=== PATIENT | male | born 1975 | race Caucasian/White ===

== ENCOUNTER → 2016-09-18 14:14 | Outpatient (CLI) | payer MEDICARE | END | disposition home or self-care (01) | LOC: D.US 14:14 | DX: N50.811 Right testicular pain (principal) ==

== ENCOUNTER 2017-11-03 08:14 | Day surgery (SDC) | payer MEDICARE, BC ==
[~2017-11-03] VITALS: Ht 177.8 cm; Wt 72.6 kg
--- NOTE | ~2017-11-03 | HP ---
PATIENT: GERBER CRAIN MEDICAL RECORD: [id number] ACCOUNT: [id number] LOCATION:[facility] : 79 ADMISSION DATE: 11/03/17 HISTORY AND PHYSICAL EXAMINATION HISTORY OF PRESENT ILLNESS: Gerber is a 42-year-old male with problems with nasal obstruction and septal deviation, turbinate hypertrophy, admitted for septoplasty and turbinate reduction. PAST MEDICAL HISTORY: Includes reflux. Chronic pain, managed by Dr. Mendoza. PAST SURGICAL HISTORY: Includes cholecystectomy in 2009. CURRENT MEDICATIONS: Lovastatin, Protonix, Wellbutrin, [place], tizanidine, Robaxin, sucralfate. ALLERGIES: MORPHINE. PHYSICAL EXAMINATION: GENERAL: Healthy appearing. FACE: Normal, symmetric, no lesions. EYES: Conjunctivae normal. EARS: Canals and TMs are normal. NOSE: He has severe septal deviation and large inferior turbinates, no masses or polyps. ORAL CAVITY AND OROPHARYNX: Tongue is midline. Pharynx normal. NECK: No masses, no adenopathy. CHEST: Clear. CARDIOVASCULAR: Regular rate and rhythm, no murmur. EXTREMITIES: Normal. IMPRESSION: Nasal obstruction, septal deviation, and turbinate hypertrophy. PLAN: Septoplasty and bilateral inferior turbinate reduction. TRANSINT:[id number] Voice Confirmation ID: [id number] DOCUMENT ID: [id number] LISY TURCIOS MD CC: [id number] DICTATION DATE: 10/31/17831 GENERAL MAINTENANCE HELPER: 10/31/17 0956 PRE [facility] [address] [place] [address]
--- NOTE | ~2017-11-03 | OP ---
PATIENT NAME: JOSE CRAIN MEDICAL RECORD: [id number] :79 [facility] DATE: SURGEON: LISY CHRIS MD DATE OF OPERATION: 11/03/2017 PREOPERATIVE DIAGNOSES: Nasal obstruction, septal deviation, and bilateral inferior turbinate hypertrophy. POSTOPERATIVE DIAGNOSES: Nasal obstruction, septal deviation, and bilateral inferior turbinate hypertrophy. PROCEDURES: Septoplasty and bilateral inferior turbinate reduction. SURGEON: Lisy Chris MD ANESTHESIA: General orotracheal. BLOOD LOSS: 2 cc. SPECIMENS: None. COMPLICATIONS: None. NASAL PACKING: Cole splints bilaterally. DISPOSITION: Recovery stable. DESCRIPTION OF PROCEDURE: He was brought to the operating room and placed in supine position, sedated and intubated by anesthesia. The eyes were taped. The table was turned 90 degrees. A head drape was applied and he was positioned for nasal surgery. Using a headlight and nasal speculum, both the inferior turbinates and floor of the nose and nasal septum were injected with a total of 2 cc of 1% lidocaine with 1:100,000 epinephrine. Two Afrin pledgets were placed in each side of the nose. He was positioned, prepped and draped in usual sterile fashion. All the Afrin pledgets were removed. A left Tico incision was made and ipsilateral mucoperichondrial flap was elevated. Bony cartilaginous junction was disarticulated and scissors were used to make a cut above and below sharp left nasal spur. Redundant cartilage was dissected off of the maxillary spine. Relaxing incisions were made in the septal cartilage to allow it to fall back into the midline. The caudal septum was dissected out the columella and this folded up septum into the left nostril was dissected out and trimmed off, so it could fall back to the midline between the medial crura and the lower lateral cartilages. Once that was done, the septum was straight. Inferior turbinates were medialized with a freer. A Gruenwald was used to take down the inferior redundant portion of the turbinates. Suction cautery on a setting of 30 was used to stop any bleeding and they were both outfractured with Boies elevator. Tico incision was closed with interrupted 4-0 chromic. Nose was examined, nasopharynx was suctioned on both sides. There was good straight nasal airway bilaterally. The Cole splints were placed with some mupirocin ointment and sutured to the anterior membranous septum with 2-0 Prolene on a Yann needle. He was awakened, extubated, and transported to recovery in good condition. No complications. TRANSINT:[id number] Voice Confirmation ID: [id number] DOCUMENT ID: [id number] OPERATIVE REPORT [id number] JOSE CRAIN ERIC MD CC: [id number] DICTATION DATE: 11/03/17 1342 PORTFOLIO CONSULTANT: 11/03/17 1430 REG [facility] [address] [place] [id number]
[~2017-11-03 08:14] MED LIST: BUPROPION HCL75 MG PO; HYDROCODONE-APA1 TAB PO; LOVASTATIN20 MG PO; PROTONIX40 MG PO; ROBAXIN-750750 MG PO; ZANAFLEX4 MG PO
[2017-11-03] MEDS ORDERED: CARAFATE1 G PO (09:34)
[2017-11-03] MEDS ORDERED: ADVIL200 MG PO (09:36)
[2017-11-03] MEDS ORDERED: FLUTICASONE PRO16 GM NASAL (09:37)
[2017-11-03 09:44] VITALS: BP 118/73; Ht 177.8 cm; Wt 72.6 kg
== END 2017-11-03 15:45 | disposition home or self-care (01) ==
LOC: D.OPS 08:14 → D.PAN 09:30 → D.OPS 10:00
DX: J34.2 Deviated nasal septum (principal); J34.3 Hypertrophy of nasal turbinates; K21.9 Gastro-esophageal reflux disease without esophagitis; J34.89 Other specified disorders of nose and nasal sinuses

== ENCOUNTER → 2018-01-19 10:13 | Outpatient (CLI) | payer MEDICARE, BC ==
[2017-11-03 09:44] VITALS: BMI 23.0
[~2018-01-19 10:13] MED LIST changes: +ADVIL200 MG PO; +CARAFATE1 G PO; +FLUTICASONE PRO16 GM NASAL
== END | disposition home or self-care (01) ==
LOC: D.MRI 10:13
DX: M54.16 Radiculopathy, lumbar region (principal); M54.6 Pain in thoracic spine

== ENCOUNTER → 2018-02-26 07:50 | Outpatient (CLI) | payer MEDICARE, BC ==
[2017-11-03 09:44] VITALS: BMI 23.0
== END | disposition home or self-care (01) ==
LOC: D.CT 07:50
DX: R10.31 Right lower quadrant pain (principal)

== ENCOUNTER 2018-03-13 12:30 | Outpatient (CLI) | payer MEDICARE, BC ==
[~2018-03-13] VITALS: Ht 177.8 cm; Wt 70.5 kg
--- NOTE | ~2018-03-13 | HEMODYNAMI ---
PATIENT:JOSE CRAIN MEDICAL RECORD: [id number] : 79 LOCATION:D.CAT ADMISSION DATE: 03/13/18 Generatedon:03/13/201817:12 Patient name: JOSE CRAIN Patient #: [id number] SSN: : 1975 Date of study: 03/13/2018 Page: Of Hemodynamic Procedure Report Patient Data Patient Demographics Procedure consent was obtained First Name: JOSE Gender: Male Last Name: PARAS : 1975 [facility] Initial: RIVERA Age: 42 year(s) Patient #: [id number] Race: Unknown Additional ID: [id number] Contact details Address: [place] [address] State: [place] City: [place] Zip code: [address] Past Medical History Allergies Allergen Reaction Date Comments Reported Morphine 03/13/2018 Admission Admission Data Admission Date: 03/13/2018 Admission Time: 12:30 Admit Source: Other Lab Results Lab Result Date: 03/13/2018 Lab Result Time: 0:00 Biochemistry Name Units Result Min Max BUN mg/dl 17 --(---*)-- 7 18 Creatinine mg/dl 1.1 --(--*-)-- 0.6 1.3 CBC Name Units Result Min Max Hemoglobin g/dl 15.3 --(-*--)-- 13.5 17.5 Procedure Procedure Types Cath Procedure Diagnostic Procedure C [facility] w/Coronaries Procedure Description Procedure Date Procedure Date: 03/13/2018 Procedure Start Time: 17:01 Procedure End Time: 17:11 Procedure Staff Name Function Matt Taylor MD Performing Physician Leonila Cantu RN Nurse Ford Salvador RT Scrub Lindsay Begum RT Monitor Procedure Data Cath Procedure Fluoroscopy Diagnostic fluoroscopy Total fluoroscopy Time: 1.6 time: 1.6 min min Diagnostic fluoroscopy Total fluoroscopy dose: 183 dose: 183 mGy mGy Contrast Material Contrast Material Type Amount (ml) Isovue 300 36 Entry Location Entry Primary Successful Side Size Upsize Upsize Entry Closure Almanzar ccessful Closure Location (Fr) 1 (Fr) 2 (Fr) Remarks Device Remarks Radial Right 6 Fr Mechanical artery Short Compression Estimated blood loss: 5 ml Diagnostic catheters Device Type Used For End Catheter Placement DIAGNOSTIC Valley 110cm 5 Procedure Fr catheter ([id number]) Procedure Complications No complications Procedure Medications Medication Administration Route Dosage Oxygen NC 2 l/min Lidocaine 2% added to field 20 Heparin Flush Bag added to field 2 bags (1000units/500ml NS) 0.9% NaCl I.V. 100 ml/hr Versed I.V. 2 mg Fentanyl I.V. 100 mcg Versed I.V. 2 mg Fentanyl I.V. 100 mcg Radial Cocktail I.A. 1 syringe (Verapomil 2mg/Nitro 400mcg/Heparin 1500units) Versed I.V. 1 mg Hemodynamics Rest HGB: 15.3 (g/dl) Heart Rate: 77 (bpm) Snapshots Pre Cath Intra NCS Post Cath Vital Signs Time Heart Resp SPO2 etCO2 NIBP (mmHg) Rhythm Pain Sedation Rate (ipm) (%) (mmHg) Status Level (bpm) 16:44:09 77 22 100 0 149/93(117) NSR 0 (11) 10(A) , No pain 16:48:25 76 17 100 32.8 134/86(104) NSR 0 (11) 10(A) , No pain 16:52:39 76 14 100 36.6 123/77(94) NSR 0 (11) 10(A) , No pain 16:56:46 81 15 100 35.8 130/84(98) NSR 0 (11) 10(A) , No pain 17:01:00 79 15 100 41.1 123/71(102) NSR 0 (11) 10(A) , No pain 17:05:13 79 16 100 38.1 117/69(93) NSR 0 (11) 9(A) , No pain 17:09:24 88 12 98 36.6 113/63(91) NSR 0 (11) 10(A) , No pain Medications Time Medication Route Dose Verified Delivered Reason Notes Effectiveness by by 16:48:57 Oxygen NC 2 l/min Matt Keen used for Claudia Cantu RN procedure 16:49:08 Lidocaine 2% added 20ml Matt Gutierrez for local to vial Claudia Taylor MD anesthetic field 16:50:27 Heparin Flush added 2 bags Matt Gutierrez used for Bag to Claudia Taylor MD procedure (1000units/500ml field NS) 16:50:36 0.9% NaCl I.V. 100 Matt Keen Per ml/hr Claudia Cantu RN physician 16:58:53 Versed I.V. 2 mg Matt Keen for sedation Claudia Cantu RN 16:59:02 Fentanyl I.V. 100 mcg Matt Keen for sedation Claudia Cantu RN 17:03:09 Versed I.V. 2 mg Matt Keen for sedation Claudia Cantu RN 17:03:12 Fentanyl I.V. 100 mcg Matt Keen for sedation Claudia Cantu RN 17:05:50 Radial Cocktail I.A. 1 Matt Gutierrez for (Verapomil syringe Claudia Taylor MD vasodilation 2mg/Nitro 400mcg/Heparin 1500units) 17:07:59 Versed I.V. 1 mg Matt Gutierrez for sedation Claudia Taylor MD Procedure Log Time Note 16:33:51 Informed consent obtained and on chart 16:33:56 Admit Source: Other 16:36:08 Ford Salvador RT(R) (CV) sent for patient. Start room use. 16:36:10 Time tracking: Regular hours (M-F 7:00 - 5:00) 16:36:13 Plan of Care:Hemodynamics will remain stable., Cardiac rhythm will remain stable., Comfort level will be maintained., Respiratory function will remain adequate., Patient/ family verbilizes understanding of procedure., Procedure tolerated without complication., Recovers from procedure without complications.. 16:36:48 Patient received from ED to CCL 2 Alert and oriented. Tansferred to table in Supine position. 16:36:49 Warm blankets applied, and harsh hugger turned on for patient comfort. 16:36:50 Correct patient and procedure confirmed by team. 16:36:50 ECG and BP/O2 sat monitors applied to patient. 16:43:02 Vital chart was started 16:48:57 Oxygen 2 l/min NC was administered by Leonila Cantu RN; used for procedure; 16:49:08 Lidocaine 2% 20ml vial added to field was administered by Matt Taylor MD; for local anesthetic; 16:50:11 Baseline sample Acquired. 16:50:15 Rhythm: sinus rhythm 16:50:16 Full Disclosure recording started 16:50:19 H&P Date Dictated: 03/13/2018 ER History on chart.. 16:50:20 Pre-procedure instructions explained to patient. 16:50:21 Pre-op teaching completed and patient verbalized understanding. 16:50:26 Family in waiting room. 16:50:27 Heparin Flush Bag (1000units/500ml NS) 2 bags added to field was administered by Matt Taylor MD; used for procedure; 16:50:30 Patient NPO since Breakfast. 16:50:36 0.9% NaCl 100 ml/hr I.V. was administered by Leonila Cantu RN; Per physician; 16:50:54 Patient allergic to Morphine 16:51:04 Is the patient allergic to Iodine/contrast media? No. 16:51:11 Is patient on blood thinner?No 16:51:13 Patient diabetic? No. 16:51:15 Previous problem with sedation/anesthesia? No ? 16:51:16 Snore? Yes 16:51:25 POSSIBLE SLEEP APNEA 16:51:28 Deviated septum? No 16:51:28 Opens mouth fully? Yes 16:51:29 Sticks out tongue? Yes 16:51:30 Airway obstruction? No ? 16:51:32 Dentures? No ? 16:51:35 Modified Abram's test Ulnar < 7 seconds 16:51:38 Patient pain scale 4/10 ?. 16:51:43 IV patent on arrival in right forearm with 0.9% NaCl at [facility]. 16:53:49 Use device set Radial Dx or PCI 16:54:23 Lab Result : BUN 17 mg/dl 16:54:23 Lab Result : Creatinine 1.1 mg/dl 16:54:23 Lab Result : Hemoglobin 15.3 g/dl 16:54:26 Lab results completed and on chart. 16:54:29 Right Radial & Right Groin area was prepped with chlora-prep and draped in sterile fashion 16:54:30 Alarms reviewed by R. N. 16:54:30 Sharps counted by scrub and verified by R.N. 16:54:39 ACIST Syringe (07588) opened to sterile field. 16:54:40 Bag Decanter (2002S) opened to sterile field. 16:54:41 ACIST Hand Control (48931) opened to sterile field. 16:54:41 ACIST Manifold (72057) opened to sterile field. 16:54:43 Tegaderm 4 x 4 (1626W) opened to sterile field. 16:54:45 Medline Cath Pack ([id number]) opened to sterile field. 16:54:45 DIAGNOSTIC WIRE .035 260cm J wire (019371) opened to sterile field. 16:54:46 MBrace Wrist Support ([id number]) opened to sterile field. 16:54:48 SHEATH 6Fr Prelude Radial ([id number]) opened to sterile field. 16:55:31 --------ALL STOP TIME OUT------ 16:55:31 Final Timeout: patient, procedure, and site verified with staff and physician. All members of the team are in agreement. 16:55:33 Right Radial & Right Groin site verified by team. 16:55:35 Physical assessment completed. ASA score P 2 - A patient with mild systemic disease as per Matt Taylor MD. 16:55:38 Sedation plan: IV Moderate Sedation Medication:Versed, Fentanyl 16:57:34 Zero performed for pressure channel P1 16:58:10 Zero performed for pressure channel P1 16:58:53 Versed 2 mg I.V. was administered by Leonila Cantu RN; for sedation; 16:59:02 Fentanyl 100 mcg I.V. was administered by Leonila Cantu RN; for sedation; 17:01:17 Procedure started. 17:01:30 Local anesthetic to right radial artery with Lidocaine 2% by Matt Taylor MD.INITIAL ACCESS ONLY 17:03:09 Versed 2 mg I.V. was administered by Leonila Cantu RN; for sedation; 17:03:12 Fentanyl 100 mcg I.V. was administered by Leonila Cantu RN; for sedation; 17:04:56 A 6 Fr Short sheath was inserted into the Right Radial artery 17:05:30 A DIAGNOSTIC Valley 110cm 5 Fr catheter (468936) was advanced over the wire and used for Procedure. 17:05:50 Radial Cocktail (Verapomil 2mg/Nitro 400mcg/Heparin 1500units) 1 syringe I.A. was administered by Matt Taylor MD; for vasodilation; 17:06:07 LV gram done using MADDEN 17:06:18 Injector settings: Ml/sec: 5, Volume: 10, 17:07:02 EF : 60 % 17:07:52 LCA angiography performed. 17:07:59 Versed 1 mg I.V. was administered by Matt Taylor MD; for sedation; 17:08:42 RCA angiography performed. 17:08:52 Catheter removed. 17:08:55 TR BAND Standard ([id number]) opened to sterile field. 17:09:01 Procedure ended.(Physican Out) 17:09:10 Sheath removed intact; hemostasis achieved with Mechanical Compression to the Right Radial artery. 17:09:36 Fluoroscopy time 01.60 minutes. 17:09:39 Fluoroscopy dose: 183 mGy 17:09:39 Flurop Dose total: 183 17:10:13 Contrast amount:Isovue 300 36ml. 17:10:15 Sharps counted by scrub and verified by R.N. 17:10:17 TR band inflated with 11cc of air. 17:10:20 Post-procedure physical assessment completed. ASA score P 2 - A patient with mild systemic disease as per Matt Taylor MD. 17:10:23 Post procedure rhythm: sinus rhythm 17:10:25 Estimated blood loss: 5 ml 17:10:35 Post procedure instruction explained to patient.Patient verbalizes understanding. 17:10:35 Patient needs reinforcement of post procedure teaching. 17:10:56 Procedure and supply charges have been captured, reviewed, submitted and are correct. 17:10:59 Procedure Complication : No complications 17:11:00 Vital chart was stopped 17:11:09 See physician's report for complete and final results. 17:11:10 Report given to Pre/Post Procedure Room. 17:11:12 Patient transfered to Pre/Post Procedure Room with Bed. 17:11:14 Procedure ended. 17:11:14 Full Disclosure recording stopped 17:11:18 End room use (Document Last) Device Usage Item Name Manufacture Quantity Catalog Number Hospital Part Current M inimal Lot# / Charge Number Stock Stock Serial# Code ACIST Syringe Acist 1 30172 500765 014997 103966 2 0 (39123) [employer] Bag Decanter Microtek 1 053612 86048 508911 5 () Medical Inc. ACIST Hand Acist 1 18371 743859 714597 030964 5 Control (60914) [employer] Inc ACIST Manifold Acist 1 25429 648286 027148 987456 5 (14228) [employer] Inc Tegaderm 4 x 4 3M 1 1626W 160395 610407 784085 5 (1626W) Medline Cath Cardinal 1 [id number] 131183 94391 717065 5 [facility] ([id number]) DIAGNOSTIC WIRE St Handy 1 648201 392672 705269 053545 3 0 .035 260cm J wire (248098) MBrace Wrist Advanced 1 140-0250-00 633205 54119 854977 5 Support Vascular ([id number]) Dynamics SHEATH 6Fr Merit 1 [id number] 702582 686558 443917 5 Prelude Radial Medical ([id number]) DIAGNOSTIC Terumo 1 29-2927 019243 905548 103615 5 Valley 110cm 5 Fr catheter (996811) TR BAND Terumo 1 [id number] 979017 740865 584903 4 0 Standard ([id number]) Signature Audit Johnston Stage Time Signature Unsigned Intra-Procedure 03/13/2018 Lindsay Begum 5:12:18 PM RT(R) Signatures Monitor : Lindsay Begum Signature : RT Date : Time : [place] [id number] [facility] [place] [address]
--- NOTE | ~2018-03-13 | CN ---
PATIENT NAME:JOSE CRAIN MEDICAL RECORD: [id number] : 79 LOCATION:D.CAT ADMIT DATE: ACCOUNT: [id number] CONSULTING PHYSICIAN: JENNA GARCIA MD REFERRING PHYSICIAN: YANNICK DAVIS MD DATE OF CONSULTATION: 03/13/2018 DIAGNOSES: 1. Chest pain. 2. Strong family history of coronary artery disease. HISTORY OF PRESENT ILLNESS: Mr. Crain presents with chest pain, this has been on and off for the past few days. He went to his primary care doctor's office, they treated him for GERD. He has continued to have this chest pain despite that. PHYSICAL EXAMINATION: GENERAL APPEARANCE: Well-nourished, well-developed, appears stated age. Level of distress, comfortable. PSYCHIATRIC: Mental status, alert, normal affect. Orientation, oriented to time, place and person. EYES: Lids and conjunctiva, noninjected. No discharge, no pallor. ENT: Lips, teeth, gums, normal dentition. Oropharynx, no cyanosis, no pallor. NECK: Carotid arteries, bilateral normal upstroke, no bruits, no thrills. JUGULAR VEINS: No jugular venous pressure or distention. CERVICAL LYMPH NODES: Nontender, nonenlarged. THYROID: Not enlarged. Nontender. No nodules. LUNGS: Respiratory effort, unlabored. CHEST: Normal curvature. No thoracic deformity. No chest wall tenderness. Percussion, resonant. Auscultation, clear. No wheezes, no rales, no rhonchi. CARDIOVASCULAR: Precordial exam, nondisplaced. No heaves or pericardial thrills. Rate and rhythm, regular. Heart sounds, normal S1, normal S2. No S3, no gallop, no rub. Systolic murmur, not heard. Diastolic murmur, not heard. EXTREMITIES: No cyanosis, no edema. Peripheral pulses, full and equal in all extremities, except as noted. No bruits appreciated. ABDOMEN: Soft, nondistended. Normal aorta. No bruit. Nontender. No masses. Liver, nontender, no hepatomegaly. Spleen, nontender, no splenomegaly. MUSCULOSKELETAL: No joint tenderness. No joint swelling. No erythema. NEUROLOGICAL: Normal gait, normal strength, normal tone. SKIN: Warm and dry. REVIEW OF SYSTEMS: The patient reports easy bruising but reports no swollen glands. The patient reports no fever, no night sweats, no significant weight gain, no significant weight loss. No significant exercise tolerance. The patient reports no dry eyes, no irritation, no vision change. Patient reports no difficulty hearing and no ear pain. Patient reports no frequent nose bleeds or nose and sinus problems. Patient reports on arm pain on exertion. No shortness of breath while lying down. No history of heart murmur. Patient reports no cough, no wheezing or coughing up blood. Patient reports no abdominal pain, no vomiting. Normal appetite. No diarrhea and not vomiting blood. No nausea and no constipation. Patient reports no incontinence. No difficulty urinating. No hematuria. No increased frequency. Patient reports no muscle aches. No weakness, no arthralgias, no back pain. No swelling of the extremities. Patient reports no abnormal mole, no jaundice, no rashes. Reports no loss of consciousness. No weakness and no numbness. No seizures, dizziness, CONSULT REPORT [id number] JOSE CRAIN or headaches. The patient reports no depression, no sleep disturbance, feeling safe in a relationship and no alcohol abuse. Patient reports on fatigue. Reports no runny nose or sinus pressure. No itching, no hives, and no frequent sneezing. OVERALL IMPRESSION: Continued chest pain, very strong family history of coronary artery disease. He is not having a myocardial infarction. We will proceed with coronary angiography. Further care depends upon the findings of the angiography. TRANSINT:[id number] Voice Confirmation ID: [id number] DOCUMENT ID: [id number] JENNA GARCIA MD at 2002 CC: [id number] DICTATION DATE: 03/13/18 1510 ROOM SERVICE BELLHOP: 03/13/18 1612 DEP CLI 03/13/18 [address] [id number] [place] [address]
--- NOTE | ~2018-03-13 | OP ---
PATIENT NAME: JOSE CRAIN MEDICAL RECORD: [id number] :79 LOCATION:D.CAT ADMISSION DATE: SURGEON: JENNA GARCIA MD DATE OF OPERATION: 03/13/2018 PROCEDURES: 1. Left heart catheterization. 2. Selective coronary angiography. 3. Left ventriculogram. INDICATION: Chest pain. PROCEDURE IN DETAIL: After informed consent was obtained and after a detailed description of the risks, benefits as well as alternative therapies, the patient elected to proceed with angiogram and heart catheterization. The right radial area was prepped and draped in normal sterile fashion. Right radial artery was cannulated via modified Seldinger technique with placement of 6-Burkinan sheath. All catheters exchanged through this sheath. FINDINGS: Left ventriculogram was performed in standard 30-degree MADDEN view, reveals good cardiac wall motion throughout all segments. Overall ejection fraction estimated 60%. SELECTIVE CORONARY ANGIOGRAPHY: Left main, left anterior descending, left circumflex, and right coronary artery are all smooth-walled vessels with no angiographic evidence of coronary artery disease. OVERALL IMPRESSION: 1. No angiographic evidence of coronary artery disease. 2. Normal left heart pressures. 3. Normal left ventricular systolic function. Chest pain is noncardiac in etiology. No further cardiac workup needs to be ascertained. TRANSINT:[id number] Voice Confirmation ID: [id number] DOCUMENT ID: [id number] JENNA GARCIA MD at 2001 CC: [id number] DICTATION DATE: 03/13/18 1715 VEGETABLE FARMING SUPERVISOR: 03/13/18 1759 DEP CLI 03/13/[address] [address]
[2018-03-13 12:41] VITALS: Ht 177.8 cm; Wt 70.5 kg
[2018-03-13 13:27] LABS: CKMB 0.9 U/L (0.0-3.6); CREATINE KINASE 144 UL (21-232)
[2018-03-13 13:47] LABS: TROPONIN-I < 0.017 ng/mL (0.000-0.060)
[2018-03-13 14:06] LABS: BASOPHILS 0.6 % (0-2); EOSINOPHILS 1.1 % (0-7); HEMATOCRIT 44.4 % (42.0-54.0); HEMOGLOBIN 15.3 g/dL (13.5-17.5); IMMATURE GRANULOCYTES 0.3 % (0-5); LYMPHOCYTES 29.2 % (15-50); MCH 30.1 pg (26.0-34.0); MCHC 34.5 g/dL (31.0-37.0); MCV 87.2 fL (80.0-100.0); MEAN PLATELET VOLUME 9.7 fL (7.4-10.4); NEUTROPHILS 60.8 % (40-80); PLATELET COUNT 232 10x3/uL (130-400); RBC 5.09 10x6/uL (4.20-6.10); RDW 12.8 % (11.5-14.5); WBC 10.6 10x3/uL (4.8-10.8)
[2018-03-13 14:21] LABS: ALBUMIN 4.2 g/dL (3.4-5.0); ALKALINE PHOSPHATASE 81 U/L (46-116); ALT (SGPT) 20 U/L (10-68); BILIRUBIN - TOTAL 0.34 mg/dL (0.2-1.3); CALC OSMOLALITY 284 mosm/kg (275-300); CALCIUM 9.3 mg/dL (8.5-10.1); CARBON DIOXIDE 26.5 mmol/L (21.0-32.0); CHLORIDE - SERUM 104 mmol/L (98-107); CREATININE - SERUM 1.1 mg/dL (0.6-1.3); GLUCOSE 91 mg/dL (74-106); POTASSIUM - SERUM 4.4 mmol/L (3.5-5.1); PROTEIN - SERUM 7.5 g/dL (6.4-8.2); SODIUM 142 mmol/L (136-145); UREA NITROGEN 17 mg/dL (7-18); eGFR NON AFRICAN AMERICAN 79 mL/min (90-120)
[2018-03-13 16:49] VITALS: BP 129/90
== END 2018-03-13 19:43 | disposition home or self-care (01) ==
LOC: D.ER 12:30 → D.CATH 12:30 → EDSTATUS 15:26 → D.CATH 19:43
PROVIDERS: Emergency Medicine
DX: R07.9 Chest pain, unspecified (principal); Z82.49 Family history of ischemic heart disease and other diseases of the circulatory system; Z01.812 Encounter for preprocedural laboratory examination

== ENCOUNTER → 2019-04-02 13:54 | Outpatient (CLI) | payer MEDICARE, BC ==
[2018-03-13 12:41] VITALS: BMI 22.2
== END | disposition home or self-care (01) ==
LOC: D.MRI 13:54
PROVIDERS: ATTEND Nurse Practitioner
DX: M54.2 Cervicalgia (principal)

== ENCOUNTER → 2020-06-30 18:51 | Outpatient (CLI) | payer MEDICARE, BC ==
[2018-03-13 12:41] VITALS: BMI 22.2
== END | disposition home or self-care (01) ==
LOC: D.LABREF 18:51
PROVIDERS: ATTEND Surgery
DX: M25.822 Other specified joint disorders, left elbow (principal)

== ENCOUNTER → 2020-12-28 13:29 | Outpatient (CLI) | payer MEDICARE, BC ==
[2018-03-13 12:41] VITALS: BMI 22.2
== END | disposition home or self-care (01) ==
LOC: D.MRI 13:29
PROVIDERS: ATTEND Clinical Nurse Specialist Adult Health
DX: M54.16 Radiculopathy, lumbar region (principal)

== ENCOUNTER → 2021-01-03 12:39 | Outpatient (CLI) | payer MEDICARE, BC ==
[2018-03-13 12:41] VITALS: BMI 22.2
== END | disposition home or self-care (01) ==
LOC: D.CT 12:39
PROVIDERS: ATTEND Clinical Nurse Specialist Adult Health
DX: R59.0 Localized enlarged lymph nodes (principal); M54.6 Pain in thoracic spine